=== PATIENT | female | born 1990 | race Caucasian/White ===

== ENCOUNTER 2016-06-01 15:44 | Emergency (ER) | payer OTHER, MEDICAID ==
[~2016-06-01] VITALS: Ht 162.6 cm; Wt 70.5 kg
[~2016-06-01 15:44] MED LIST: BENZ1CAP34 PO; CELE40TA PO; NAPR500 PO; OSEL75 PO; PRED20 PO
[2016-06-01 16:26] VITALS: BP 114/69; PULSE 73; RESP 16; TEMP 98.9; O2SAT 98
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
[2016-06-01 16:28] VITALS: BP 114/69; PULSE 73; RESP 16; O2SAT 98
[2016-06-01] MEDS ORDERED: KETOROLAC TROMETHAMINE 60 MG/2 ML (IM) VIAL IM ONE (16:30)
[2016-06-01] MEDS ORDERED: CELE40TA PO (16:52)
[2016-06-01 18:35] VITALS: BP 116/70; PULSE 67; RESP 16; O2SAT 97
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
[2016-06-01] MEDS ORDERED: NAPR500T PO (19:03)
[2016-06-01] MEDS ORDERED: ROBA750T PO (19:03)
== END 2016-06-01 19:11 | disposition home or self-care (01) ==
LOC: NEPB 15:44
DX: S16.1XXA Strain of muscle, fascia and tendon at neck level, initial encounter (principal); M54.6 Pain in thoracic spine; Z86.59 Personal history of other mental and behavioral disorders; Z87.42 Personal history of other diseases of the female genital tract; V89.2XXA Person injured in unspecified motor-vehicle accident, traffic, initial encounter; Y92.410 Unspecified street and highway as the place of occurrence of the external cause
CPT/HCPCS: 72125; 84703; 96372; 99284; J1885

== ENCOUNTER 2017-02-12 20:20 | Emergency (ER) | payer MEDICAID ==
[~2017-02-12] VITALS: Ht 162.6 cm; Wt 74.2 kg
[~2017-02-12 20:20] MED LIST changes: -BENZ1CAP34 PO; -NAPR500 PO; +NAPR500T PO; -OSEL75 PO; -PRED20 PO; +ROBA750T PO
[2017-02-12 20:44] VITALS: BP 118/56; PULSE 75; RESP 20; TEMP 98.7; O2SAT 97
--- NOTE | 2017-02-12 21:11 | PD ---
HPI Chief Complaint: Eye Problems/Injury Time Seen by Provider: 21:11 Travel History International Travel<30 days: No Contact w/Intl Traveler<30days: No Traveled to known affect area: No History of Present Illness HPI 26-year-old female complaining of left eye pain for 1 day. States that it started this morning but has progressively gotten worse and developed green discharge. She denies significant blurred vision, has mild pain and does wear contacts regularly. No photophobia or pain with eye movement. No fevers, chills , cough, sore throat or any other complaints today. PFSH Past Medical History Medical History: Denies Significant Hx Bipolar Disorder: Yes Anxiety: Yes Depression: Yes Genitourinary: Yes (ENDOMETRIOSIS) Headaches: Yes Tetanus Vaccination: < 5 Years Influenza Vaccination: No ?: Unknown LMP: 01/2017 : 2 Para: 1 Miscarriage: 1 Past Surgical History Section: Yes Gynecologic Surgery: Yes (CYSTOSCOPY, LAP ) Social History Alcohol Use: No Tobacco Use: No (VAPES) Substance Use: No Allergies-Medications (Allergen,Severity, Reaction): Coded Allergies: No Known Allergies (Unverified , 02/12/17) Reported Meds & Prescriptions Reported Meds & Active Scripts Active Ciloxan Opth Oint (Ciprofloxacin) 0.3% Oint 0.5 Inch EACH EYE TID 7 Days Robaxin (Methocarbamol) 750 Mg Tab 750 Mg PO QID Naproxen 500 Mg Tab 500 Mg PO BID 7 Days Reported Celexa (Citalopram Hydrobromide) 40 Mg Tab 40 Mg PO DAILY Review of Systems Except as stated in HPI: all other systems reviewed are Neg Physical Exam Narrative 26-year-old female GENERAL: well developed well developed SKIN: Focused skin assessment warm/dry. HEAD: Atraumatic. Normocephalic. EYES: Pupils equal and round. No scleral icterus. Mild Scleral injection, white discharge, EOMI without pain, no periorbital edema or erythema, eye lids without edema. Fluorescein stain without increased uptake. Visual acuity 20/15 and 20/20 ENT: No nasal bleeding or discharge. Mucous membranes pink and moist. NECK: Trachea midline. No JVD. CARDIOVASCULAR: Regular rate and rhythm. No murmur appreciated. RESPIRATORY: No accessory muscle use. Clear to auscultation. Breath sounds equal bilaterally. MUSCULOSKELETAL: No obvious deformities. No clubbing. No cyanosis. No edema. NEUROLOGICAL: Awake and alert. No obvious cranial nerve deficits. Motor grossly within normal limits. Normal speech. PSYCHIATRIC: Appropriate mood and affect; insight and judgment normal. Data Data Last Documented VS Vital Signs Date Time Temp Pulse Resp B/P (MAP) Pulse Ox O2 Delivery O2 Flow Rate FiO2 02/12/17 20:44 98.7 75 20 118/56 (76) 97 MDM Medical Decision Making Medical Screen Exam Complete: Yes Emergency Medical Condition: Yes Differential Diagnosis Allergic conjunctivitis versus viral conjunctivitis versus abrasion Narrative Course 26 y female with a one-day history of left eye irritation and pain. Physical exam is consistent with viral conjunctivitis however, because of patient's history of contact lens's use will be treated empirically with antibiotics Patient advised to follow-up with the ED if she develops signs of infections Diagnosis Primary Impression: Conjunctivitis Qualified Codes: H10.32 - Unspecified acute conjunctivitis, left eye Referrals: [facility] Primary Care Physician Additional Instructions: Use all antibiotics as prescribed Avoid touching or rubbing her eye as you may be contagious. Keep contacts out of eye until resolved If you're vision changes, developed increased swelling, or redness return to the emergency department further treatment evaluation Scripts Ciprofloxacin Opth Oint (Ciloxan Opth Oint) 0.3% Oint 0.5 INCH EACH EYE TID for Infection for 7 Days, #1 TUBE 0 Refills Prov: Mundo Barrett MD 02/12/17 Disposition: 01 DISCHARGE HOME Condition: Stable Wendy Ferrera Feb 12, 2017 21:11
[2017-02-12] MEDS ORDERED: CIPR3.5O EACH EYE (21:24)
== END 2017-02-12 21:36 | disposition home or self-care (01) ==
LOC: PHEFT 20:20
DX: H10.32 Unspecified acute conjunctivitis, left eye (principal)
CPT/HCPCS: 99283

== ENCOUNTER 2017-03-19 20:13 | Emergency (ER) | payer MEDICAID ==
[~2017-03-19] VITALS: Ht 162.6 cm; Wt 71.9 kg
[~2017-03-19 20:13] MED LIST changes: +CIPR3.5O EACH EYE; -NAPR500T PO; +NAPR500T2 PO
[2017-03-19 20:18] VITALS: BP 134/74; PULSE 81; RESP 16; TEMP 98.1; O2SAT 96
[2017-03-19] MEDS ORDERED: SODIUM CHLORIDE 0.9% FLUSH 10 ML FLUSH IVF PRN (22:30)
[2017-03-19 22:41] VITALS: O2SAT 98
[2017-03-19 22:45] LABS: AUTOMATED NEUTROPHIL # 3.3 TH/MM3 (1.8-7.7); BASOPHIL % 0.7 % (0.0-2.0); EOSINOPHIL # 0.1 TH/MM3 (0-0.4); HEMATOCRIT 38.7 % (35.0-46.0); LYMPHOCYTE # 2.8 TH/MM3 (1.0-4.8); MEAN CELL VOLUME 76.9 FL (80.0-100.0); MEAN CORPUSCULAR HEMOGLOBIN 24.8 PG (27.0-34.0); MEAN CORPUSCULAR HGB CONC 32.2 % (32.0-36.0); MONO % 8.4 % (0.0-8.0); NEUT % 46.9 % (16.0-70.0); PLATELET COUNT 222 TH/MM3 (150-450); RED BLOOD COUNT 5.03 MIL/MM3 (4.00-5.30); RED CELL DISTRIBUTION WIDTH 13.3 % (11.6-17.2); WHITE BLOOD COUNT 6.8 TH/MM3 (4.0-11.0)
[2017-03-19 22:48] LABS: HEMO FLAGS DIFF FINAL
[2017-03-19 22:53] LABS: CHLORIDE 107 MEQ/L (98-107); POTASSIUM 3.9 MEQ/L (3.5-5.1); SODIUM (NA) 140 MEQ/L (136-145)
[2017-03-19 22:59] LABS: ANION GAP 8 MEQ/L (5-15); APTT (PATIENT) 25.9 SEC (24.3-30.1); BICARBONATE 25.3 MEQ/L (21.0-32.0); BLOOD UREA NITROGEN 18 MG/DL (7-18); MAGNESIUM 2.2 MG/DL (1.5-2.5)
[2017-03-19 23:02] LABS: GLOMERULAR FILTRATION RATE 104 ML/MIN (>89)
[2017-03-19 23:05] LABS: CREATINE KINASE 140 U/L (26-192)
--- NOTE | 2017-03-19 23:06 | RADRPT ---
EXAM DATE/TIME: 03/19/2017 22:47 [facility] COMPARISON: CHEST SINGLE AP, May 29, 2015, 9:29. INDICATIONS : Chest pain, palpitations. MEDICAL HISTORY : None. SURGICAL HISTORY : None. ENCOUNTER: Initial ACUITY: 1 day PAIN SCORE: 0/10 LOCATION: Bilateral chest FINDINGS: A single view of the chest demonstrates the lungs to be symmetrically aerated without evidence of mas s, infiltrate or effusion. The cardiomediastinal contours are unremarkable. Osseous structures are intact. CONCLUSION: 1. No acute cardiopulmonary disease. Gamaliel Thompson MD on March 19, 2017 at 23:04 Board Certified Radiologist. This report was verified electronically.
[2017-03-19 23:17] VITALS: BP_SYST 110; BP_SYST 124; BP_DIAS 64; BP_DIAS 74
[2017-03-19 23:18] LABS: CKMB 0.8 NG/ML (0.5-3.6)
--- NOTE | 2017-03-19 23:39 | PD ---
HPI Chief Complaint: Chest Pain Time Seen by Provider: 22:21 Travel History International Travel<30 days: No Contact w/Intl Traveler<30days: No Traveled to known affect area: No History of Present Illness HPI 26-year-old female presents to the emergency department by private transportation for complaint of palpitations. Patient states she's noticed palpitations intermittently but over the last 24 hours she states that when she has palpitations she notes discomfort. Patient has no discomfort at this time. Patient denies any referred neck jaw back shoulder arm pain and no shortness of breath sweats nausea or vomiting. Patient states she shared this information with her grandmother who has a history of mitral valve prolapse and cardiac disease and was told to come to the emergency room to be evaluated and because her grandmother scared her she decided to come to the emergency room tonight. Patient rates one cup of coffee a day does not drink caffeine or take caffeine supplements on a regular basis does not drink alcohol does and does not use substances. Patient does admit to tobacco use. Patient is not on control pills. Last period was 02/20/17 and denies . Patient states she just had her thyroid function tested recently because it but she was hypothyroid because of weight gain. Patient is not on any weight loss medications. Patient reports as far she knows her thyroid function was normal. Patient has no other chronic medical conditions other than she is somewhat anxious. PFSH Past Medical History Narrative Medical Anxiety depression bipolar disorder, endometriosis, , tobacco use; nursing notes reviewed Bipolar Disorder: Yes Anxiety: Yes Depression: Yes Genitourinary: Yes (ENDOMETRIOSIS) Headaches: Yes Tetanus Vaccination: < 5 Years Influenza Vaccination: Yes ?: Not LMP: 02-20- : 2 Para: 1 Miscarriage: 1 Past Surgical History Section: Yes Gynecologic Surgery: Yes (CYSTOSCOPY, LAP ) Social History Alcohol Use: No Tobacco Use: Yes (vapes) Substance Use: No Allergies-Medications (Allergen,Severity, Reaction): Coded Allergies: No Known Allergies (Unverified Adverse Reaction, Unknown, 03/19/17) Reported Meds & Prescriptions Reported Meds & Active Scripts Active Review of Systems Except as stated in HPI: all other systems reviewed are Neg General / Constitutional: No: Fever, Chills HENT: No: Congestion Cardiovascular: Positive: Chest Pain or Discomfort, Palpitations (with skipped beats), No: Diaphoresis, Syncope ( occasional) Respiratory: No: Cough, Shortness of Breath Gastrointestinal: No: Nausea, Vomiting Genitourinary: No: Dysuria Musculoskeletal: No: Myalgias, Arthralgias Neurologic: No: Weakness Psychiatric: Positive: Anxiety Endocrine: No: Heat Intolerance Hematologic/Lymphatic: No: Easy Bruising Physical Exam Narrative GENERAL: Well-developed well-nourished female in no acute distress no respiratory distress SKIN: Warm and dry. HEAD: Normocephalic. EYES: No scleral icterus. No injection or drainage. NECK: Supple, trachea midline. No JVD or lymphadenopathy. CARDIOVASCULAR: Regular rate and rhythm without murmurs, gallops, or rubs. No skipped beats no murmur. RESPIRATORY: Breath sounds equal bilaterally. No accessory muscle use. GASTROINTESTINAL: Abdomen soft, non-tender, nondistended. MUSCULOSKELETAL: No cyanosis, or edema. BACK: Nontender without obvious deformity. No CVA tenderness. Data Data Last Documented VS Vital Signs Date Time Temp Pulse Resp B/P (MAP) Pulse Ox O2 Delivery O2 Flow Rate FiO2 03/20/17 00:00 70 16 120/66 (84) 98 03/19/17 22:41 Room Air 03/19/17 20:18 98.1 Orders Orders Electrocardiogram (03/19/17 ) Electrocardiogram (03/19/17 22:20) Basic Metabolic Panel (Bmp) (03/19/17 22:20) Ckmb (Isoenzyme) Profile (03/19/17 22:20) Complete Blood Count With Diff (03/19/17 22:20) Magnesium (Mg) (03/19/17 22:20) Prothrombin Time / Inr (Pt) (03/19/17 22:20) Act Partial Throm Time (Ptt) (03/19/17 22:20) Troponin I (03/19/17 22:20) Chest, Single Ap (03/19/17 22:20) Ecg Monitoring (03/19/17 22:20) Bilateral Bp Monitoring (03/19/17 22:20) Iv Access Insert/Monitor (03/19/17 22:20) Oximetry (03/19/17 22:20) Oxygen Administration (03/19/17 22:20) Sodium Chloride 0.9% Flush (Ns Flush) (03/19/17 22:30) Thyroid Stimulating Hormone (03/19/17 22:20) CKMB (03/19/17 22:37) CKMB% (03/19/17 22:37) Ketorolac Inj (Toradol Inj) (03/19/17 23:45) Ed Urine Pregnancytest Poc (03/19/17 23:45) Free Thyroxine (T4) (03/19/17 23:45) Labs Laboratory Tests Test 03/19/17 22:37 White Blood Count 6.8 TH/MM3 Red Blood Count 5.03 MIL/MM3 Hemoglobin 12.5 GM/DL Hematocrit 38.7 % Mean Corpuscular Volume 76.9 FL Mean Corpuscular Hemoglobin 24.8 PG Mean Corpuscular Hemoglobin Concent 32.2 % Red Cell Distribution Width 13.3 % Platelet Count 222 TH/MM3 Mean Platelet Volume 8.5 FL Neutrophils (%) (Auto) 46.9 % Lymphocytes (%) (Auto) 42.0 % Monocytes (%) (Auto) 8.4 % Eosinophils (%) (Auto) 2.0 % Basophils (%) (Auto) 0.7 % Neutrophils # (Auto) 3.3 TH/MM3 Lymphocytes # (Auto) 2.8 TH/MM3 Monocytes # (Auto) 0.6 TH/MM3 Eosinophils # (Auto) 0.1 TH/MM3 Basophils # (Auto) 0.0 TH/MM3 CBC Comment DIFF FINAL Differential Comment Prothrombin Time 11.0 SEC Prothromb Time International Ratio 1.0 RATIO Activated Partial Thromboplast Time 25.9 SEC Blood Urea Nitrogen 18 MG/DL Creatinine 0.68 MG/DL Random Glucose 90 MG/DL Calcium Level 8.6 MG/DL Magnesium Level 2.2 MG/DL Sodium Level 140 MEQ/L Potassium Level 3.9 MEQ/L Chloride Level 107 MEQ/L Carbon Dioxide Level 25.3 MEQ/L Anion Gap 8 MEQ/L Estimat Glomerular Filtration Rate 104 ML/MIN Total Creatine Kinase 140 U/L Creatine Kinase MB 0.8 NG/ML Troponin I LESS THAN 0.02 NG/ML Thyroid Stimulating Hormone 3rd Gen 5.010 uIU/ML MDM Medical Decision Making Medical Screen Exam Complete: Yes Emergency Medical Condition: Yes Medical Record Reviewed: Yes Interpretation(s) EKG: Sinus rhythm with sinus arrhythmia rate [address] elevation injury pattern or ectopy noted poc hcg: negative tsh: 5.010, mildly elevated Last Impressions Chest X-Ray 03/19/170 Signed Impressions: Service Date/Time: Sunday, March 19, 2017 22:47 - CONCLUSION: 1. No acute cardiopulmonary disease. Gamaliel Thompson MD CBC & BMP Diagram 03/19/17 22:37 Calcium Level 8.6, Magnesium Level 2.2 Vital Signs Date Time Temp Pulse Resp B/P (MAP) Pulse Ox O2 Delivery O2 Flow Rate FiO2 03/20/17 00:00 70 16 120/66 (84) 98 03/19/17 23:17 110/64 (79) 124/74 (91) 03/19/17 22:41 98 Room Air 03/19/17 22:41 98 Room Air 03/19/17 20:18 98.1 81 16 134/74 (94) 96 Differential Diagnosis Palpitations, electrolyte disturbance, SVT, atypical chest pain, ACS, arrhythmia , PE, thyroid dysfunction Narrative Course patient placed on panel monitor with continuous pulse oximetry IV access obtained specimens collected and sent for resulting EKG performed which shows sinus rhythm with sinus arrhythmia Patient resting comfortably voicing no concerns or complaints Cardiac enzymes found to be in normal range electrolytes are found to be within normal limits; TSH mildly elevated free T4 ordered Patient is asymptomatic and stable for outpatient management will need to follow up closely with her primary care provider regarding thyroid dysfunction Diagnosis Primary Impression: Intermittent palpitations Additional Impression: Thyroid dysfunction Referrals: Primary Care Physician 2 days Patient Instructions: General Instructions Additional Instructions: Follow up with your primary provider Return to the emergency department for any concerns or change in condition Decrease caffeine use Med/Other Pt SpecificInfo: No Meds Exist/No RX given Disposition: 01 DISCHARGE HOME Condition: Stable Elvie Young MD Mar 19, 2017 23:39
[2017-03-19] MEDS ORDERED: KETOROLAC TROMETHAMINE 30 MG/ML (IVP) VIAL IV PUSH ONE (23:45)
[2017-03-20] VITALS: BP 120/66
--- NOTE | 2017-03-20 13:11 | EKG ---
Date Performed: 03/19/2017 Time Performed: 20:27:16 PTAGE: 26 years EKG: Sinus rhythm WITH SINUS ARRHYTHMIA NORMAL ECG PREVIOUS TRACING : 11/26/2014 09.33 Compared to prior tracing no significant change DOCTOR: Gordon Lowry Interpretating Date/Time 03/20/2017 13:11:02
--- NOTE | 2017-03-20 13:12 | EKG ---
Date Performed: 03/19/2017 Time Performed: 22:34:07 PTAGE: 26 years EKG: Sinus rhythm WITH SINUS ARRHYTHMIA NORMAL ECG PREVIOUS TRACING : 03/19/2017 20.27 Compared to prior tracing no significant change DOCTOR: Gordon Lowry Interpretating Date/Time 03/20/2017 13:11:18
== END 2017-03-20 00:10 | disposition home or self-care (01) ==
LOC: PHED 20:13
DX: R00.2 Palpitations (principal); E07.9 Disorder of thyroid, unspecified; I49.9 Cardiac arrhythmia, unspecified; Z72.0 Tobacco use; Z86.59 Personal history of other mental and behavioral disorders; Z87.42 Personal history of other diseases of the female genital tract
CPT/HCPCS: 71010; 80048; 82550; 82552; 83735; 84439; 84443; 84484; 84703; 85025; 85610; 85730; 93005; 96374; 99285; J1885

== ENCOUNTER 2017-07-05 14:27 | Emergency (ER) | payer MEDICAID, OTHER ==
[~2017-07-05] VITALS: Ht 162.6 cm; Wt 64.0 kg
[2017-07-05 14:43] VITALS: BP 98/57; PULSE 78; RESP 20; TEMP 98.4; O2SAT 98
[2017-07-05] MEDS ORDERED: BUSP5TAB PO (15:25)
[2017-07-05] MEDS ORDERED: CELE10TA PO (15:25)
--- NOTE | 2017-07-05 15:40 | PD ---
HPI Chief Complaint: Cold / Flu Symptoms Time Seen by Provider: 15:19 Travel History International Travel<30 days: No Contact w/Intl Traveler<30days: No Traveled to known affect area: No History of Present Illness HPI 27-year-old female that presents to the ED for evaluation of cold-like symptoms. Patient has had cold like symptoms since this morning. Per patient she woke up feeling nauseous and feeling like she is getting a cold. Per patient she's been in contact with friends who have been diagnosed with the flu. One of her friends has also been diagnosed with strep throat. She is concerned she might be getting the flu. She comes here with her daughter who has the same symptoms except her daughter has had it for over 48 hours and she has more of a sore throat. Patient herself does not have a sore throat. No urinary or bowel movement issues. No chest pain or shortness of breath. No medical issues. She did get her flu shot this year. She has no allergies to medication. States feeling more like she has a fever body aches with congestion. PFSH Past Medical History Bipolar Disorder: Yes Anxiety: Yes Depression: Yes Genitourinary: Yes (ENDOMETRIOSIS) Headaches: Yes Immunizations Current: Yes Tetanus Vaccination: < 5 Years Influenza Vaccination: Yes ?: Not LMP: 06/05/17 : 2 Para: 1 Miscarriage: 1 Past Surgical History Section: Yes Gynecologic Surgery: Yes (CYSTOSCOPY, LAP ) Social History Alcohol Use: No Tobacco Use: Yes (vapes) Substance Use: No Allergies-Medications (Allergen,Severity, Reaction): Coded Allergies: No Known Allergies (Unverified Adverse Reaction, Unknown, 07/05/17) Reported Meds & Prescriptions Reported Meds & Active Scripts Active Reported Buspirone (Buspirone HCl) 5 Mg Tab Unknown Dose PO BID Celexa (Citalopram Hydrobromide) 10 Mg Tab Unknown Dose PO DAILY Review of Systems Except as stated in HPI: all other systems reviewed are Neg Physical Exam Narrative GENERAL: Well-nourished, well-developed patient in no apparent distress. SKIN: Warm and dry. HEAD: Atraumatic. Normocephalic. EYES: Pupils equal and round reactive to light and accommodation. No scleral icterus. No injection or drainage. ENT: No nasal bleeding or discharge. Mucous membranes pink and moist. TMs are clear with no sign of infection or perforation. No mastoid tenderness. Ear canals are intact bilaterally. No lymphadenopathy. Nostril mucosa is red and moist with clear mucus noted. No sinus tenderness to palpation noted. Tonsils are not enlarged or swollen. No ulvua Deviation. Tongue is midline. NECK: Trachea midline. No JVD. No meningeal signs noted CARDIOVASCULAR: Regular rate and rhythm. RESPIRATORY: No accessory muscle use. Clear to auscultation. Breath sounds equal bilaterally. GASTROINTESTINAL: Abdomen soft, non-tender, nondistended. Hepatic and splenic margins not palpable. MUSCULOSKELETAL: Extremities without clubbing, cyanosis, or edema. No obvious deformities. Full range of motion of the upper and lower extremities bilaterally. 2+ pulses bilaterally. NEUROLOGICAL: Awake and alert. No obvious cranial nerve deficits. Motor grossly within normal limits. Five out of 5 muscle strength in the arms and legs. Normal speech. PSYCHIATRIC: Appropriate mood and affect; insight and judgment normal. Data Data Last Documented VS Vital Signs Date Time Temp Pulse Resp B/P (MAP) Pulse Ox O2 Delivery O2 Flow Rate FiO2 07/05/17 14:43 98.4 78 20 98/57 (71) 98 Orders Orders Influenzae A/B Antigen (07/05/17 15:26) MDM Medical Decision Making Medical Screen Exam Complete: Yes Emergency Medical Condition: Yes Medical Record Reviewed: Yes Differential Diagnosis Influenza versus URI versus strep throat versus pharyngitis Narrative Course 27-year-old female that presents to the ED for evaluation of cold like symptoms. Patient was properly examined and was found to have signs and symptoms concerning for flu. Flu test was ordered. Patient Instructions: General Instructions Additional Instructions: Motrin and Tylenol for pain and fever. You can use [id number] antihistamine as well as well as Mucinex as needed for runny nose and congestion. Cough drops for cough as needed. Drink plenty of fluids. Follow-up with PCP. See ED for worsening symptoms. Med/Other Pt SpecificInfo: Prescription(s) given Disposition: 01 DISCHARGE HOME Condition: Stable Fidencio Herrera Jul 05, 2017 15:40
--- NOTE | 2017-07-05 16:50 | PD ---
Physical Exam Date Seen by Provider: Jul 05, 2017 Time Seen by Provider: 16:49 Narrative This is a continuation of my previous note. Please refer to that note. My attending signed my note before I could finish it. Data Data Last Documented VS Vital Signs Date Time Temp Pulse Resp B/P (MAP) Pulse Ox O2 Delivery O2 Flow Rate FiO2 07/05/17 14:43 98.4 78 20 98/57 (71) 98 Orders Orders Influenzae A/B Antigen (07/05/17 15:26) Ed Discharge Order (07/05/17 16:48) MDM Medical Record Reviewed: Yes Supervised Visit with STEPHON: No Interpretation(s) flu negative Differential Diagnosis Influenza versus viral illness versus URI versus strep throat Narrative Course 27-year-old female that presents to the ED for evaluation of cold-like symptoms. Patient was properly examined and was found to have signs and symptoms consistent appears to be URI. Flu test was done and was negative on her. At this time attending this is likely viral illness. Recommend supportive care. Follow with PCP. See ED worsening symptoms. Given note for school and work. Diagnosis Primary Impression: URI, acute Patient Instructions: General Instructions Departure Forms: Tests/Procedures, Work Release Enter return to work date: Jul 07, 2017 Additional Instruction: Motrin and Tylenol for pain and fever. You can use [id number] antihistamine as well as well as Mucinex as needed for runny nose and congestion. Cough drops for cough as needed. Drink plenty of fluids. Follow-up with PCP. See ED for worsening symptoms. Med/Other Pt SpecificInfo: Prescription(s) given Disposition: 01 DISCHARGE HOME Condition: Stable Fidencio Herrera Jul 05, 2017 16:50
== END 2017-07-05 17:24 | disposition home or self-care (01) ==
LOC: PHEFT 14:27
DX: J06.9 Acute upper respiratory infection, unspecified (principal); F31.9 Bipolar disorder, unspecified; Z72.0 Tobacco use
CPT/HCPCS: 87804; 99283